=== PATIENT | male | born 1945 | race Caucasian/White ===

== ENCOUNTER 2017-01-02 19:32 | Inpatient (IN) | payer OTHER ==
[~2017-01-02] VITALS: Ht 175.3 cm; Wt 99.8 kg
[~2017-01-02 19:32] MED LIST: ALPRAZOLAM0.5 MG PO; CITALOPRAM HBR10 MG PO; COREG 3.125M3.125 MG PO; COUMADIN5 MG PO; ENALAPRIL MALEAT5 MG PO; FLOMAX0.4 MG PO; HYDROCHLOROTHIA25 MG PO; LEVAQUIN500 MG PO; NITROSTAT0.4 MG SL; PRIMIDONE50 MG PO; TYLENOL W/CODEIN1 E1 PO; VIT D3 PO; VITAMIN B-1000 MCG/M IM; ZANTAC 150 MG150 MG PO; ZYLOPRIM 100 M100 MG PO
[2017-01-02 20:45] LABS: HEMOGLOBIN 15.1 gm/dl (14.0-17.5); RED BLOOD COUNT 4.4 M/UL (4.20-5.50); WHITE BLOOD COUNT 9.7 K/UL (4.5-11.0)
[2017-01-03 04:01] LABS: HEMOGLOBIN 14.3 gm/dl (14.0-17.5); RED BLOOD COUNT 4.15 M/UL (4.20-5.50)
[2017-01-04 06:42] LABS: HEMOGLOBIN 14.5 gm/dl (14.0-17.5); RED BLOOD COUNT 4.28 M/UL (4.20-5.50)
[2017-01-04] MEDS ORDERED: PROTONIX 40 MG40 M1 PO (13:47)
[2017-01-04] MEDS ORDERED: IPRAT-ALBUT 0.5-3 ML NEB (13:53)
[2017-01-04] MEDS ORDERED: VIBRAMYCIN 100100 MG PO (14:22)
[2017-01-04] MEDS ORDERED: MEDROL DOSEPAK 24 MG PO (14:23)
== END 2017-01-04 15:00 | disposition home health service (06) | DRG 603 ==
LOC: ER1 19:32 → ZEROF 22:28 → M/S 22:28
PROVIDERS: Emergency Medicine; Internal Medicine; ADMIT Internal Medicine
DX: L03.116 Cellulitis of left lower limb (principal); E87.1 Hypo-osmolality and hyponatremia; J44.1 Chronic obstructive pulmonary disease with (acute) exacerbation; I12.9 Hypertensive chronic kidney disease with stage 1 through stage 4 chronic kidney disease, or unspecified chronic kidney disease; N18.3 Chronic kidney disease, stage 3 (moderate); I25.5 Ischemic cardiomyopathy; E86.0 Dehydration; D69.6 Thrombocytopenia, unspecified; I48.91 Unspecified atrial fibrillation; C61 Malignant neoplasm of prostate; R11.2 Nausea with vomiting, unspecified; R55 Syncope and collapse; I73.9 Peripheral vascular disease, unspecified; E55.9 Vitamin D deficiency, unspecified; N40.0 Benign prostatic hyperplasia without lower urinary tract symptoms; K57.90 Diverticulosis of intestine, part unspecified, without perforation or abscess without bleeding; R25.1 Tremor, unspecified; K76.0 Fatty (change of) liver, not elsewhere classified; R73.9 Hyperglycemia, unspecified; R26.9 Unspecified abnormalities of gait and mobility; R42 Dizziness and giddiness; K59.00 Constipation, unspecified; Z87.891 Personal history of nicotine dependence; Z91.81 History of falling; Z95.810 Presence of automatic (implantable) cardiac defibrillator; Z79.01 Long term (current) use of anticoagulants; Z79.891 Long term (current) use of opiate analgesic; Z79.899 Other long term (current) drug therapy; Z90.49 Acquired absence of other specified parts of digestive tract; Z98.890 Other specified postprocedural states; Z82.49 Family history of ischemic heart disease and other diseases of the circulatory system
CPT/HCPCS: 36415; 70450; 71010; 80048; 80053; 81001; 82550; 82553; 82607; 82746; 83036; 83605; 83735; 83874; 83880; 84439; 84443; 84484; 85025; 85027; 85610; 85730; 87040; 87086; 93005; 93926; 93971; 94640; 96365; 96366; 97110; 97530; 97535; 99285; J2920; J3370; J7070